=== PATIENT | female | born 1970 | race Caucasian/White ===

== ENCOUNTER 2024-05-23 15:43 | Emergency (ER) | payer MEDICAID ==
[~2024-05-23] VITALS: Ht 157.5 cm; Wt 68.0 kg
[2024-05-23 15:47] VITALS: O2SAT 99
[2024-05-23 18:59] LABS: HEMATOCRIT. 49.6 % (36.0-48.0); HEMOGLOBIN. 15.7 g/dL (12.0-16.0); MEAN CORPUSCULAR HEMOGLOBIN 29.6 pg (28.0-32.0); MEAN CORPUSCULAR HGB CONC 31.7 g/dL (31.0-37.0); MEAN CORPUSCULAR VOLUME 93.4 fL (81.0-99.0); PLATELET 183 x1000/uL (130-400); RED BLOOD CELL COUNT 5.31 mill/uL (4.2-5.4); RED CELL DISTRIBUTION WIDTH 15.1 % (11.6-14.6); WHITE BLOOD COUNT 7.2 x1000/uL (4.5-11.0)
[2024-05-23 19:03] LABS: DIFFERENTIAL COMMENT 1
[2024-05-23 19:12] LABS: CARBON DIOXIDE 25 mEq/L (21-32)
[2024-05-23 19:13] LABS: CALCIUM 9.8 mg/dL (8.7-10.4)
[2024-05-23 19:17] LABS: CREATININE 0.7 mg/dL (0.6-1.0); GLUCOSE 114 mg/dL (70-105); UREA NITROGEN BLOOD 14 mg/dL (9-23)
[2024-05-23 19:18] LABS: PROTHROMBIN TIME 11.2 sec (9.6-11.0)
[2024-05-23 19:20] LABS: TROPONIN I HIGH SENSITIVITY < 4 ng/L (3.0-34)
[2024-05-23 19:28] LABS: CHLORIDE 104 mEq/L (98-107); SODIUM 137 mEq/L (136-145)
[2024-05-23 20:10] VITALS: BP 111/69; PULSE 74; RESP 17; TEMP 36.9; O2SAT 99
[2024-05-23 22:01] LABS: ANISOCYTOSIS 1+; PLATELET ESTIMATE NORMAL
== END 2024-05-23 20:11 | disposition home or self-care (01) ==
LOC: ER 15:43
DX: R55 Syncope and collapse (principal); F32.A Depression, unspecified
CPT/HCPCS: 36415; 71045; 80048; 84484; 85025; 93005; 99285